=== PATIENT | female | born 1965 | race Caucasian/White ===

== ENCOUNTER 2016-10-08 12:35 | Observation (INO) | payer MEDICAID ==
[2016-10-08] VITALS (10 sets, daily range): BP systolic 99–144; BP diastolic 58–76; PULSE 73–85; RESP 16–20; TEMP 98–98.2; O2SAT 94–100
[~2016-10-08] VITALS: Ht 152.4 cm; Wt 61.4 kg
[~2016-10-08 12:35] MED LIST: CYCL-36 PO; DICL75 PO; LIPI20TA PO; VIST50CA PO
[2016-10-08] MEDS ORDERED: CYCL1TAB29 PO (12:57)
[2016-10-08] MEDS ORDERED: ALBUAER3 INH (12:57)
[2016-10-08] MEDS ORDERED: HYDR50CA PO (12:57)
[2016-10-08] MEDS ORDERED: DICL75TA PO (12:57)
[2016-10-08] MEDS ORDERED: ATOR40TA16 PO (12:57)
--- NOTE | 2016-10-08 13:11 | PD ---
HPI Chief Complaint: Cardiac Complaint Time Seen by Provider: 13:11 Travel History International Travel<30 days: No Contact w/Intl Traveler<30days: No Traveled to known affect area: No History of Present Illness HPI Patient is a 50-year-old female with history of each of anxiety, hyperlipidemia , asthma, lupus, and tobacco use presenting with chest pain. She has a central chest pain which is 7 out of 10 in severity. She feels like it is a tightness and squeezing. It radiates to her shoulder blades. She has dyspnea and has a dry cough. She denies any wheezing or fever. She has a history of asthma but states this does not feel like asthma exacerbation. She states it has history of anxiety and this is somewhat consistent with her symptoms but is worse and not resolving with hydroxyzine. She feels it somewhat worsened with deep inspiration. Further she feels over the last 2-3 days with exertion the chest pain has worsened whereas in the past taking walks may have helped. 2 days ago she had an episode of dizziness without syncope. It has not recurred. Today she's had some palpitations which she has not had previously. She took aspirin last evening. Nothing is palliative her symptoms. Psych exertion is no exacerbations is lying flat. She denies pedal edema and pain in her calves. He denies history of DVT, exogenous estrogen use, long distance travel or recent surgery/immobility. She denies a history of hypertension, diabetes and CAD. She denies recent ENT/URI symptoms. PFSH Past Medical History Arthritis: Yes Autoimmune Disease: Yes (LUPUS ) Anxiety: Yes Heart Rhythm Problems: No Cardiac Catheterization: No Cardiovascular Problems: Yes High Cholesterol: Yes Congestive Heart Failure: No Diabetes: No Diminished Hearing: No Hypertension: No Kidney Stones: Yes Reproductive: Yes (FIBROIDS ) Immunizations Current: No Tetanus Vaccination: > 5 Years Influenza Vaccination: No ?: Not LMP: UNK Menopausal: Yes : 6 Para: 5 Miscarriage: 1 : 0 Tubal Ligation: Yes Past Surgical History Coronary Artery Bypass Graft: No Gynecologic Surgery: Yes (TUBAL, FULL HYSTERECTOMY ) Hysterectomy: Yes (FULL) Family History Family Myocardial Infarction: Yes Social History Alcohol Use: Yes (rare) Tobacco Use: Yes (1/2 ppd) Substance Use: No Allergies-Medications (Allergen,Severity, Reaction): Coded Allergies: Bactrim (Verified Adverse Reaction, Intermediate, Diarrhea, 1/16/17) Reported Meds & Prescriptions Reported Meds & Active Scripts Active Reported Atorvastatin (Atorvastatin Calcium) 40 Mg Tab 40 Mg PO HS Flexeril (Cyclobenzaprine HCl) 10 Mg Tab 10 Mg PO TID Hydroxyzine Pamoate 50 Mg Cap 50 Mg PO BID Diclofenac Sodium DR (Diclofenac Sodium) 75 Mg Tabdr 75 Mg PO BID Proair Hfa 8.5 GM Inh (Albuterol Sulfate) 90 Mcg/Act Aer 2 Puff INH Q6H PRN 108 mcg/actuation Review of Systems Except as stated in HPI: all other systems reviewed are Neg Physical Exam Narrative GENERAL: Well-developed and well-nourished adult female in no acute distress. SKIN: Warm and dry. Good turgor without tenting. HEAD: Normocephalic and atraumatic. EYES: PERRL bilaterally, 5mm. EOMI bilaterally. No injection or icterus present. No proptosis. Lids without edema or erythema. ENT: Buccal mucosa pink and moist. Oropharynx free of erythema, tonsillar hypertrophy, masses, swelling, asymmetry and exudates. Uvula midline and airway patent. NECK: Supple, no midline tenderness, crepitus or step-offs. Trachea midline, no JVD. No cervical or facial lymphadenopathy. CARDIOVASCULAR: Regular rate and rhythm without murmurs, rubs, clicks or gallops. Radial and posterior tibial pulses 2+ bilaterally. No pedal edema. Negative bilateral Homans sign. RESPIRATORY: Clear to auscultation bilaterally with symmetrical rise and fall, no distress or use of accessory muscles. Speaks in full sentences. No stridor , tripoding or drooling. GASTROINTESTINAL: Non-tender, non-distended. Normal bowel sounds all 4 quadrants. No masses or organomegaly present. MUSCULOSKELETAL: No gait disturbances. Patient freely moving all four extremities spontaneously. Extremities without clubbing, cyanosis, or edema. No obvious deformities. NEUROLOGIC: CN II-XII grossly intact. Awake and alert. Motor grossly within normal limits. Normal speech. PSYCHIATRIC: Anxious. Data Data Last Documented VS Vital Signs Date Time Temp Pulse Resp B/P Pulse Ox O2 Delivery O2 Flow Rate FiO2 10/08/16 14:50 78 18 116/75 99 Room Air 10/08/16 12:36 98.0 Orders Electrocardiogram (10/08/16 ) B-Type Natriuretic Peptide (10/08/16 13:06) Ckmb (Isoenzyme) Profile (10/08/16 13:06) Complete Blood Count With Diff (10/08/16 13:06) Comprehensive Metabolic Panel (10/08/16 13:06) Magnesium (Mg) (10/08/16 13:06) Prothrombin Time / Inr (Pt) (10/08/16 13:06) Act Partial Throm Time (Ptt) (10/08/16 13:06) Troponin I (10/08/16 13:06) Chest, Single Ap (10/08/16 13:06) Ecg Monitoring (10/08/16 13:06) Bilateral Bp Monitoring (10/08/16 13:06) Iv Access Insert/Monitor (10/08/16 13:06) Oximetry (10/08/16 13:06) Aspirin (Aspirin) (10/08/16 13:15) Lorazepam Inj (Ativan Inj) (10/08/16 13:15) Lipase (10/08/16 13:25) CKMB (10/08/16 13:25) CKMB% (10/08/16 13:25) D-Dimer (10/08/16 14:17) Admit Order (Ed Use Only) (10/08/16 15:36) Labs Laboratory Tests Test 10/08/16 13:25 White Blood Count 7.6 TH/MM3 Red Blood Count 4.60 MIL/MM3 Hemoglobin 14.1 GM/DL Hematocrit 41.3 % Mean Corpuscular Volume 89.6 FL Mean Corpuscular Hemoglobin 30.6 PG Mean Corpuscular Hemoglobin 34.1 % Concent Red Cell Distribution Width 14.0 % Platelet Count 259 TH/MM3 Mean Platelet Volume 9.6 FL Neutrophils (%) (Auto) 68.0 % Lymphocytes (%) (Auto) 23.8 % Monocytes (%) (Auto) 6.6 % Eosinophils (%) (Auto) 1.1 % Basophils (%) (Auto) 0.5 % Neutrophils # (Auto) 5.2 TH/MM3 Lymphocytes # (Auto) 1.8 TH/MM3 Monocytes # (Auto) 0.5 TH/MM3 Eosinophils # (Auto) 0.1 TH/MM3 Basophils # (Auto) 0.0 TH/MM3 CBC Comment DIFF FINAL Differential Comment Prothrombin Time 10.3 SEC Prothromb Time International 0.9 RATIO Ratio Activated Partial 25.4 SEC Thromboplast Time D-Dimer Quantitative (PE/DVT) LESS THAN 0.19 MG/L FEU Sodium Level 139 MEQ/L Potassium Level 3.8 MEQ/L Chloride Level 103 MEQ/L Carbon Dioxide Level 26.7 MEQ/L Anion Gap 9 MEQ/L Blood Urea Nitrogen 10 MG/DL Creatinine 0.86 MG/DL Estimat Glomerular Filtration 70 ML/MIN Rate Random Glucose 89 MG/DL Calcium Level 8.7 MG/DL Magnesium Level 2.2 MG/DL Total Bilirubin 0.5 MG/DL Aspartate Amino Transf 20 U/L (AST/SGOT) Alanine Aminotransferase 32 U/L (ALT/SGPT) Alkaline Phosphatase 110 U/L Total Creatine Kinase 117 U/L Creatine Kinase MB LESS THAN 0.5 NG/ML Troponin I LESS THAN 0.02 NG/ML B-Type Natriuretic Peptide 46 PG/ML Total Protein 8.0 GM/DL Albumin 3.7 GM/DL Lipase 70 U/L MDM Medical Decision Making Medical Screen Exam Complete: Yes Emergency Medical Condition: Yes Interpretation(s) Last 24 hours Impressions Chest X-Ray 10/08/16 1306 Signed Impressions: Service Date/Time: Saturday, October 08, 2016 13:12 - CONCLUSION: No acute disease. Robson Ballesteros MD FACR Laboratory Tests Test 10/08/16 13:25 White Blood Count 7.6 TH/MM3 (4.0-11.0) Red Blood Count 4.60 MIL/MM3 (4.00-5.30) Hemoglobin 14.1 GM/DL (11.6-15.3) Hematocrit 41.3 % (35.0-46.0) Mean Corpuscular Volume 89.6 FL (80.0-100.0) Mean Corpuscular Hemoglobin 30.6 PG (27.0-34.0) Mean Corpuscular Hemoglobin 34.1 % Concent (32.0-36.0) Red Cell Distribution Width 14.0 % (11.6-17.2) Platelet Count 259 TH/MM3 (150-450) Mean Platelet Volume 9.6 FL (7.0-11.0) Neutrophils (%) (Auto) 68.0 % (16.0-70.0) Lymphocytes (%) (Auto) 23.8 % (9.0-44.0) Monocytes (%) (Auto) 6.6 % (0.0-8.0) Eosinophils (%) (Auto) 1.1 % (0.0-4.0) Basophils (%) (Auto) 0.5 % (0.0-2.0) Neutrophils # (Auto) 5.2 TH/MM3 (1.8-7.7) Lymphocytes # (Auto) 1.8 TH/MM3 (1.0-4.8) Monocytes # (Auto) 0.5 TH/MM3 (0-0.9) Eosinophils # (Auto) 0.1 TH/MM3 (0-0.4) Basophils # (Auto) 0.0 TH/MM3 (0-0.2) CBC Comment DIFF FINAL Differential Comment Prothrombin Time 10.3 SEC (9.8-11.6) Prothromb Time International 0.9 RATIO Ratio Activated Partial 25.4 SEC Thromboplast Time (24.3-30.1) D-Dimer Quantitative (PE/DVT) LESS THAN 0.19 MG/L FEU (0.00-0.50) Sodium Level 139 MEQ/L (136-145) Potassium Level 3.8 MEQ/L (3.5-5.1) Chloride Level 103 MEQ/L (98-107) Carbon Dioxide Level 26.7 MEQ/L (21.0-32.0) Anion Gap 9 MEQ/L (5-15) Blood Urea Nitrogen 10 MG/DL (7-18) Creatinine 0.86 MG/DL (0.50-1.00) Estimat Glomerular Filtration 70 ML/MIN (>89) Rate Random Glucose 89 MG/DL (74-106) Calcium Level 8.7 MG/DL (8.5-10.1) Magnesium Level 2.2 MG/DL (1.5-2.5) Total Bilirubin 0.5 MG/DL (0.2-1.0) Aspartate Amino Transf 20 U/L (15-37) (AST/SGOT) Alanine Aminotransferase 32 U/L (10-53) (ALT/SGPT) Alkaline Phosphatase 110 U/L (45-117) Total Creatine Kinase 117 U/L (26-192) Creatine Kinase MB LESS THAN 0.5 NG/ML (0.5-3.6) Troponin I LESS THAN 0.02 NG/ML (0.02-0.05) B-Type Natriuretic Peptide 46 PG/ML (0-100) Total Protein 8.0 GM/DL (6.4-8.2) Albumin 3.7 GM/DL (3.4-5.0) Lipase 70 U/L (73-393) Differential Diagnosis ACS vs PE vs aortic aneurysm vs CHF vs asthma exacerbation vs pneumonia vs arrhythmia vs anxiety/panic disorder Narrative Course Patient is a 50 year old female with history of anxiety, hyperlipidemia, asthma , lupus and tobacco use presenting with chest pain/tightness, dyspnea and palpitations for several days. She reports this is somewhat typical of her previous anxiety symptoms over the palpitations are new. She denies any respiratory complaints and does not believe she is having an asthma exacerbation. It does seem be worsened with activity and there is a pleuritic component and it does radiate to her back and her shoulder blades. Patient was given aspirin 325 mg. Patient was given Ativan 1 mg as she does appear anxious. EKG shows sinus rhythm with rate of 75. NM interval slightly short at 118 ms. No ectopic or dropped beats. Normal axis. Patient is a RSR in V2 and there is some flattening and inversion of the T waves in lead 3, this is present on previous EKG. She was here for similar symptoms and there were 2016 and had a exercise stress test which was negative for ischemia. She is not tachycardic, visibly dyspneic or tachypneic. Oxygen saturation is 98% on room air. CBC unremarkable. INR 0.9. HIS creatinine 0.86. Troponin less than 0.02. Lipase 70, BNP 46, d-dimer 0.19. Patient reports resolution of her chest discomfort. Concern is that as this has been atypical for her usual anxiety and there was a exertional component given her age, smoking history of hyperlipidemia and feel that the patient would benefit from admission to the chest pain center. I discussed this with her and she is in agreement. Diagnosis Primary Impression: Chest pain Qualified Code: R07.9 - Chest pain, unspecified type Admitting Information Admitting Physician Requests: Observation Condition: Stable Eran Smith III Oct 08, 2016 13:11
[2016-10-08] MEDS ORDERED: LORazepam 2 MG/ML VIAL IV PUSH ONE (13:15)
[2016-10-08] MEDS ORDERED: ASPIRIN 325 MG TAB PO ONE (13:15)
--- NOTE | 2016-10-08 13:39 | RADRPT ---
EXAM DATE/TIME: 10/08/2016 13:12 [facility] COMPARISON: CHEST SINGLE AP, March 29, 2016, 7:55. INDICATIONS : Anterior chest pain and shortness of breath today, anxiety, no chest surgery, smoker MEDICAL HISTORY : lupus, anxiety SURGICAL HISTORY : Hysterectomy. ENCOUNTER: Initial ACUITY: 1 day PAIN SCORE: 10/10 LOCATION: Bilateral chest FINDINGS: A single view of the chest demonstrates the lungs to be symmetrically aerated without evidence of mas s, infiltrate or effusion. The cardiomediastinal contours are unremarkable. Osseous structures are intact. CONCLUSION: No acute disease. Robson Ballesteros MD FACR on October 08, 2016 at 13:37 Board Certified Radiologist. This report was verified electronically.
[2016-10-08 13:43] LABS: AUTOMATED NEUTROPHIL # 5.2 TH/MM3 (1.8-7.7); BASOPHIL % 0.5 % (0.0-2.0); EOSINOPHIL # 0.1 TH/MM3 (0-0.4); EOSINOPHIL % 1.1 % (0.0-4.0); HEMATOCRIT 41.3 % (35.0-46.0); HEMO FLAGS DIFF FINAL; LYMPH % 23.8 % (9.0-44.0); LYMPHOCYTE # 1.8 TH/MM3 (1.0-4.8); MEAN CELL VOLUME 89.6 FL (80.0-100.0); MEAN CORPUSCULAR HEMOGLOBIN 30.6 PG (27.0-34.0); MEAN CORPUSCULAR HGB CONC 34.1 % (32.0-36.0); MONO % 6.6 % (0.0-8.0); PLATELET COUNT 259 TH/MM3 (150-450); WHITE BLOOD COUNT 7.6 TH/MM3 (4.0-11.0)
[2016-10-08 13:48] LABS: APTT (PATIENT) 25.4 SEC (24.3-30.1); INTERNATIONAL NORMALIZED RATIO 0.9 RATIO; PROTHROMBIN TIME - PATIENT 10.3 SEC (9.8-11.6)
[2016-10-08 14:08] LABS: ANION GAP 9 MEQ/L (5-15); AST (GOT) 20 U/L (15-37); BICARBONATE 26.7 MEQ/L (21.0-32.0); BLOOD UREA NITROGEN 10 MG/DL (7-18); CHLORIDE 103 MEQ/L (98-107); GLOMERULAR FILTRATION RATE 70 ML/MIN (>89); MAGNESIUM 2.2 MG/DL (1.5-2.5); POTASSIUM 3.8 MEQ/L (3.5-5.1); SODIUM (NA) 139 MEQ/L (136-145)
[2016-10-08 14:13] LABS: ALKALINE PHOSPHATASE 110 U/L (45-117); ALT (GPT) 32 U/L (10-53); CREATINE KINASE 117 U/L (26-192); TOTAL BILIRUBIN ADULT 0.5 MG/DL (0.2-1.0)
[2016-10-08 14:25] LABS: CKMB LESS THAN 0.5 NG/ML (0.5-3.6)
[2016-10-08] MEDS ORDERED: RESP: ALBUTEROL 2.5 MG/IPRATROPIUM 0.5 MG NEB (PRN) INH (16:15)
[2016-10-08] MEDS ORDERED: ACETAMINOPHEN 500 MG CPLT PO PRN (16:15)
[2016-10-08] MEDS ORDERED: SODIUM CHLORIDE 0.9% FLUSH 5 ML FLUSH IVF PRN (16:15)
[2016-10-08] MEDS ORDERED: ONDANSETRON HCL 4 MG/2 ML VIAL IV PRN (16:15)
[2016-10-08] MEDS ORDERED: ACETAMINOPHEN/HYDROcodone 325 MG/7.5 MG TAB PO PRN (16:15)
[2016-10-08] MEDS ORDERED: cloNIDine HCL 0.1 MG TAB PO PRN (16:15)
[2016-10-08] MEDS ORDERED: ALPRAZolam 0.25 MG TAB PO PRN (16:15)
[2016-10-08 17:46] LABS: CREATINE KINASE 117 U/L (26-192)
--- NOTE | 2016-10-08 17:47 | EKG ---
Date Performed: 10/08/2016 Time Performed: 12:54:42 PTAGE: 50 years EKG: Sinus rhythm WITH SHORT KS INTERVAL POSSIBLE RIGHT VENTRICULAR CONDUCTION DELAY BORDERLINE ECG PREVIOUS TRACING : 10/26/2015 23.32 DOCTOR: Charlie Villafana Interpretating Date/Time 10/08/2016 17:45:28
--- NOTE | 2016-10-08 17:47 | EKG ---
Date Performed: 10/08/2016 Time Performed: 16:11:11 PTAGE: 50 years EKG: Sinus rhythm POSSIBLE RIGHT VENTRICULAR CONDUCTION DELAY BORDERLINE ECG PREVIOUS TRACING : 10/08/2016 12.54 DOCTOR: Charlie Villafana Interpretating Date/Time 10/08/2016 17:46:53
[2016-10-08 18:00] LABS: CKMB 0.5 NG/ML (0.5-3.6)
[2016-10-08] MEDS ORDERED: CYCLOBENZAPRINE HCL 10 MG TAB PO SCH (18:00)
[2016-10-08 20:19] LABS: CREATINE KINASE 75 U/L (26-192)
[2016-10-08] MEDS ORDERED: ATORVASTATIN 40 MG TAB PO SCH (21:00)
[2016-10-08] MEDS ORDERED: SODIUM CHLORIDE 0.9% FLUSH 5 ML FLUSH IVF SCH (21:00)
[2016-10-09] VITALS (7 sets, daily range): BP systolic 85–109; BP diastolic 57–64; PULSE 70–88; RESP 18–20; TEMP 98–98.2; O2SAT 94–100
--- NOTE | 2016-10-09 08:15 | MH ---
cc: ALESHIA DANIELLE DATE OF ADMISSION 10/08/2016 DATE OF 1965 CHIEF COMPLAINT Chest pain. HISTORY OF PRESENT ILLNESS This is a 50-year-old female that presents to the ED via private vehicle complaining of intermittent tightness in the center of her chest radiating to her neck for the last days. She states that it lasts for seconds at a time but it has been recurring quite often. She states it has already happened 10 times today. She at times becomes short of breath with it. No nausea. She has been a little diaphoretic at times. She has found nothing to really bring on her symptoms. She states that it comes out of the blue. She states that she really does nothing exertional. She does walk a lot from the bus stop home and from home to the bus stop but the patient is not really walking fast to exert herself. Denies any recent illnesses. Denies fever or chills. She denies a personal history of CAD. She states that she had a stress test in the past and upon reviewing her records she had a nonischemic Zaki protocol ETT in October of 2015 as well as having nonischemic treadmill in 2012 at this facility. She states that her parents have coronary artery disease. PAST MEDICAL HISTORY 1. Hyperlipidemia. 2. Asthma. 3. Anxiety. 4. Chronic back pain. 5. Tobacco abuse. Denies hypertension, diabetes and known CAD. FAMILY HISTORY Her mother at 61 of myocardial infarction. Her father also had CAD. SOCIAL HISTORY The patient smoked a pack of cigarettes a day for 36 years. She denies illicit drugs and denies alcohol use. 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 PAST SURGICAL HISTORY 1. Tubal ligation. 2. And hysterectomy. ALLERGIES BACTRIM WHICH SHE DESCRIBES MORE OF AN ADVERSE REACTION CAUSING GI UPSET. CURRENT MEDICATIONS 1. Atorvastatin. 2. Flexeril. 3. Hydroxyzine. 4. Diclofenac. 5. And ProAir inhaler. REVIEW OF SYSTEMS GENERAL: Denies fever or chills. Denies recent illnesses. HEENT: Denies headache, earache, sore throat or difficulty swallowing. CARDIOVASCULAR: Describes the discomfort as mentioned above. At times diaphoresis. Denies sensation of heart beating rapidly or irregularly. No syncope. She at times becomes dizzy with these symptoms as well. RESPIRATORY: She is at times short of breath. When she has the tightness sometimes she will use her inhaler which will at times improve her symptoms. Denies any wheeze, however. Denies hemoptysis. GASTROINTESTINAL: Denies nausea and vomiting, diarrhea, abdominal pain or blood in the stool. MUSCULOSKELETAL: Denies joint pain or edema. Denies calf pain or edema. She does have chronic back pain. NEUROVASCULAR: Denies headache. She has ____ dizziness at times. Denies numbness, tingling or weakness in the extremities. ENDOCRINE: Denies polyuria, polydipsia. HEMATOLOGIC: Denies easy bruising. SKIN: Denies rash or itching. PHYSICAL EXAMINATION VITAL SIGNS: In the emergency department initially included a blood pressure of 136/75, heart rate is 82, respiratory rate is 20, pulse oximetry 100% on room air and she was afebrile. The most recent vital signs include a blood pressure of 116/75, heart rate 78, respiratory rate 18, pulse oximetry 98% on room air. GENERAL: The patient is seen in the examination room in no apparent distress. She is very pleasant. She speaks in clear and complete sentences. HEENT: Head is atraumatic, normocephalic. NECK: Supple without lymphadenopathy. Trachea is midline. No JVD or carotid bruits. CARDIOVASCULAR: Regular rate and rhythm without murmurs, rubs, or gallops. LUNGS: Clear to auscultation bilaterally. No wheezes, rhonchi or rales. There is a reproducible discomfort in the center of her chest wall, however, she says this is not exactly the same type of discomfort she had been having the last two days intermittently. No use of accessory muscles. ABDOMEN: Nontender. Nondistended. Bowel sounds are normal. No rebound or guarding. No obvious pulsatile mass or bruit. No CVA tenderness. Strong femoral pulses bilaterally. MUSCULOSKELETAL: The patient moving upper and lower extremities freely. No joint tenderness or edema. No calf tenderness or edema. No Afua sign. Strong pulses in the upper and lower extremities. NEUROVASCULAR: The patient is alert and oriented. Cranial nerves II through XII are grossly intact. No focal deficits. Speech is clear. SKIN: No rashes and turgor is normal. LABORATORY DATA CBC is unremarkable. Coagulation studies unremarkable including a D-dimer that is normal at less than 0.19. Complete metabolic panel essentially is normal other than GFR being decreased at 70. First set of cardiac enzymes normal. BNP is normal 46. Lipase is 70. IMAGING Single view chest x-ray read by radiologist as no acute disease. ELECTROCARDIOGRAM EKGs have sinus rhythm rate of [address]-segment depression or elevation. ASSESSMENT 1. Chest pain: The patient's discomfort does sound more atypical. However, she does have multiple risk factors for CAD with her mother having KS, hyperlipidemia, tobacco abuse. She will spend the night in the chest pain center to rule out with serial cardiac enzymes and EKGs. She was seen by Dr. Danielle in the chest pain center. If she does well then she will likely proceed with a Zaki protocol ETT and if that were to be non ischemic she will be discharged home with instructions to follow up with her local physician which is Dr. Mann. 2. Hyperlipidemia: Continue current medication. 3. Chronic back pain: Will have analgesia for her as needed. She will resume her medicine at discharge. 4. Asthma: Will have DuoNebs p.r.n. She needs to quit smoking. 5. Tobacco abuse: The patient has been counseled on the importance of smoking cessation. The patient is stable at this time. She is agreeable with this plan. DICTATED BY: MALLORY Madden Aleshia Danielle MD RHB/KK /4:13 PM /8:16 AM
--- NOTE | 2016-10-09 08:34 | EKG ---
Date Performed: 10/08/2016 Time Performed: 19:13:06 PTAGE: 50 years EKG: Sinus rhythm POSSIBLE RIGHT VENTRICULAR CONDUCTION DELAY BORDERLINE ECG Since PREVIOUS TRACING , no significant change noted PREVIOUS TRACIN10/08/2016 16.11 DOCTOR: Rupal Park Interpretating Date/Time 10/09/2016 08:32:23
--- NOTE | 2016-10-09 08:53 | TR ---
Date Performed: 10/09/2016 Time Performed: 08:29:33 DOCTOR: Rupal Park DRUG LIST: CLINICAL HISTORY: CHEST PAIN REASON FOR TEST: REASON FOR ENDING: OBSERVATION: CONCLUSION: ROCK PROTOCOL. NO CP. TEST STOPPED AFTER EXCEEDING GOAL HR SECONDARY TO SOB AND LEG FATIGUE.Maximum QA=506 % Max HR Achieved=93.0% Maximum RQ=207/66 Total Exercise Time=7:01 COMMENTS:
--- NOTE | 2016-10-09 08:55 | HHI.DCPOC ---
Discharge Care Plan Diagnosis: (1) Chest pain (2) Hyperlipidemia (3) Tobacco abuse (4) Chronic back pain (5) Asthma Goals to Promote Your Health * To prevent worsening of your condition and complications * To maintain your health at the optimal level Directions to Meet Your Goals Take your medications as prescribed Follow your dietary instruction Follow activity as directed Keep your appointments as scheduled Take your immunizations and boosters as scheduled If your symptoms worsen call your PCP, if no PCP go to Urgent Care Center or Emergency Room Smoking is Dangerous to Your Health. Avoid second hand smoke Call the 24-hour hour crisis hotline for domestic abuse at Gianfranco Bowman Oct 09, 2016 08:55
== END 2016-10-09 10:47 | disposition home or self-care (01) ==
LOC: NEPA 12:35 → NEDA 15:39 → NEPHCDU 17:40
PROVIDERS: ADMIT Family Medicine; ATTEND Family Medicine
DX: R07.9 Chest pain, unspecified (principal); E78.5 Hyperlipidemia, unspecified; G89.29 Other chronic pain; M54.9 Dorsalgia, unspecified; J45.909 Unspecified asthma, uncomplicated; R06.00 Dyspnea, unspecified; R05 Cough; F41.9 Anxiety disorder, unspecified; R42 Dizziness and giddiness; R00.2 Palpitations; M19.90 Unspecified osteoarthritis, unspecified site; E78.00 Pure hypercholesterolemia, unspecified; D25.9 Leiomyoma of uterus, unspecified; F17.200 Nicotine dependence, unspecified, uncomplicated; Z79.899 Other long term (current) drug therapy; R61 Generalized hyperhidrosis
CPT/HCPCS: 71010; 80053; 82550; 82552; 83690; 83735; 83880; 84484; 85025; 85379; 85610; 85730; 93005; 93017; 96374; 99285; G0378; J2060